=== PATIENT | female | born 1945 | race Caucasian/White ===

== ENCOUNTER → 2017-02-12 | Outpatient (CLI) | payer OTHER ==
[~2017-02-12] VITALS: Ht 162.6 cm; Wt 72.6 kg
[~2017-02-12] MED LIST: ACCUNEB1.25 MG/3; ARTIFICIAL TEA1 EACH OPHTHALMIC; ASPIRIN EC81 M1; AZELASTINE137 MCG/0. NS; BENADRYL25 MG PO; BENZONATATE200 MG; BROVANA15 MCG/2 M; BUTALBITAL-APA1 EAC1; CITRACAL + BON1 EACH PO; CLARINEX5 MG; DUONEB 2.5-0.5 M3 ML INH; FETZIMA40 MG PO; FIBER625 MG PO; FISH OIL 1,001000 M2 PO; FLONASE 0.05%50 MCG NASAL; HEALTHYLAX17 GM; HYDROCHLOROTHIA25 M1 PO; IBUPROFEN 200200 M1 PO; KETOCONAZOLE60 GM TOP; MACROBID 100 M100 M1 PO; MICARDIS40 MG PO; MUCINEX1200 MG PO; NASONEX17 GM; NEILMED SINUS R1 KIT NASAL; NEXIUM 40 MG CA40 M1 PO; NEXIUM40 MG; OMEPRAZOLE 20 M20 M1 PO; OPCON-A EYE DRO15 M1 OPHTHALMIC; PHENERGAN 25 MG25 M1; PHENERGAN 25 MG25 M1 PO; PREDNISONE 20 M20 M1; PROAIR HFA8.5 GM; PROBIOTIC1 EAC1 PO; PROPRANOLOL 4040 M1; PULMICORT0.25 MG/2; SINGULAIR 10 MG10 M1; SOMA250 MG; SORINE 80 MG TA80 M1; SYMBICORT80 MCG/4.1 INH; TORADOL 10 MG T10 MG PO; UNICOMPLEX M TA1 TA1 PO; VITAMIN D1000 UNI1 PO; VYTORIN 10-401 EACH; ZANTAC 150MG T150 MG PO
[2017-02-12 09:16] LABS: HEMOGLOBIN 11.7 gm/dL (12.0-15.0); MCH 29.8 pg (26.0-34.0); MCHC 34.5 g/dL (28.0-37.0); MCV 86.4 fL (80.0-100.0); RBC 3.93 mil/uL (4.20-5.00); RDW 12.9 % (10.5-14.5); WBC 7.9 thou/uL (4.0-11.0)
[2017-02-12 09:18] VITALS: BP 112/79
[2017-02-12 09:47] LABS: CALCIUM 9.3 mg/dL (8.5-10.1); CREATININE 0.8 mg/dL (0.6-1.0); POTASSIUM 3.7 mmol/L (3.5-5.1)
[2017-02-12 09:58] LABS: APTT 26.8 Seconds (24.5-32.8); PROTIME 10.2 Seconds (9.3-11.4)
== END | disposition home or self-care (01) ==
LOC: SPEC 07:33
PROVIDERS: Radiology Diagnostic Radiology
DX: K55.059 Acute (reversible) ischemia of intestine, part and extent unspecified (principal); I70.1 Atherosclerosis of renal artery; I77.4 Celiac artery compression syndrome